=== PATIENT | female | born 1950 | race Caucasian/White ===

== ENCOUNTER → 2018-01-20 | Outpatient (CLI) | payer OTHER ==
[~2018-01-20] VITALS: Ht 160 cm; Wt 66.1 kg
[~2018-01-20] MED LIST: AZITHROMYCIN 2250 MG PO; CBD PO; INDERAL LA80 MG PO; MIACALCIN; NEURONTIN 300300 M1 PO; NORFLEX100 MG PO; PERCOCET 5-3251 EACH PO; PREVACID15 MG PO; TRAMADOL 50 MG50 MG PO; TRAZODONE HCL50 MG PO; TYLENOL EXTRA500 MG PO; VIRTUSSIN AC L118 ML PO; XARELTO20 MG PO
--- NOTE | ~2018-01-20 | HPC ---
[facility] [place] [address] PAIN MANAGEMENT CONSULTATION Name: ENMANUEL JERONIMO Room #: REG [facility] MJack.#: [id number] Admission: 01/20/18 Attend Phys: Al Schmidt DO Discharge: Date of : 54 Report #: [id number] THIS REPORT FOR: //name// CC: Jason Brown DATE OF SERVICE: 01/20/2018 REFERRING PHYSICIAN: Jason Saavedra D.O. CHIEF COMPLAINT: Low back pain and right lower extremity pain with paresthesias. HISTORY OF PRESENT ILLNESS: As you know, the patient is a very pleasant 67-year-old female referred to our service for evaluation for suspected lumbar radiculopathy. The patient has had extensive lumbar spine surgery, which provided pain improvement but unfortunately, her symptoms began to return. She was subsequently referred to our clinic. She has been diagnosed with lumbar radiculopathy secondary to the displacement of a lumbar intervertebral disk and severe neural foraminal stenosis of the lumbar spine. The combination, which has led to increasing pain. The patient was subsequently referred to our service to trial epidural injections. She has undergone 2 epidural injections, the first 11/25/2017 and the second 12/09/2017, both of which provided good benefit. The patient reports the previous epidural injection led to a near 100% improvement in overall pain until just recently where her symptoms began to return. She returns to undergo the third and final of epidural injections in the 6 months. ALLERGIES: IODINE and PROVIDINE. CURRENT MEDICATIONS: Trazodone, lansoprazole, acetaminophen, tramadol and propranolol. SOCIAL HISTORY: The patient denies tobacco, alcohol or IV or illicit drug use. 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 She is unaccompanied today. IMAGING DATA: No new imaging available. PHYSICAL EXAMINATION: VITAL SIGNS: Blood pressure 124/80, pulse is 65 and respiratory rate 16 and unlabored. The patient is 97% on room air. Height 5 feet 3 inches tall, weight 145.8 pounds and BMI calculated 25.8. GENERAL: Well-developed, well-nourished, well-hydrated 67-year-old female, appearing her stated age. She is placing current pain score at 3/10. HEENT: Normocephalic and atraumatic. Pupils equal, round and reactive to [facility] [address] [place] [address] PAIN MANAGEMENT CONSULTATION Name: ENMANUEL JERONIMO SABA Room #: REG CLNoel Becerra#: [id number] Admission: 01/20/18 Attend Phys: Al Schmidt DO Discharge: Date of : 54 Report #: [id number] light. Extraocular muscles are intact. Speech remains fluent. EXTREMITIES: Show no clubbing, no cyanosis and no edema. MUSCULOSKELETAL: Lower extremity strength is 5/5, intact to light touch from L1 through S2 dermatomes. Seated straight leg raising negative. Supine straight leg raising positive right. Vivi's test negative. Modified Gaenslen's positive for axial low back pain. PQRS: The patient has known osteoarthritis of the low back, bilateral hips, no rheumatoid arthritis. Pacing placing pain score 3/10. She is not a fall risk, has not had a fall in the last 3 months. She is not on blood thinners. She is treated for hypertension. She is not taking any opioid. She does have a opioid addiction potential. She is placing her pain impact score 40/70, mild to moderate. ASSESSMENT: 1. Symptomatic lumbar radiculopathy. 2. Displacement of lumbar intervertebral disk with radiculopathy. 3. 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 4. Facet arthropathy of the lumbar spine. 5. Lumbosacral spondylosis with radiculopathy. 6. Chronic intractable pain. PLAN: 1. The patient returns today in followup visit indicating excellent benefit with previous epidural injection. Unfortunately, her symptoms have begun to return. She returns to undergo next in the series of epidural injections. She has been advised the risks and benefits of the procedure and states understood and wished to proceed. 2. No medication changes made at today's visit. The patient will continue current medical therapy as previously prescribed. 3. We will see the patient back in followup visit on an as needed basis for the next in the series of epidural injections. We did advise the patient today the next injection would be 6 months from her 11/25/2017 initial epidural injection. PROCEDURE NOTE DESCRIPTION OF PROCEDURE: L5-S1 right paramedian epidural steroid injection under fluoroscopic guidance. After obtaining written consent, the patient was taken back to fluoroscopy suite, placed in prone position with pillow under abdomen to decrease lumbar lordosis. Skin overlying lumbosacral area then prepped and draped in aseptic fashion. The L5-S1 vertebral interspace identified by AP fluoroscopy. Skin and subcutaneous tissue overlying target site of injection then anesthetized with 3 mL of 1% lidocaine. [facility] [address] [place] [address] PAIN MANAGEMENT CONSULTATION Name: ENMANUEL JERONIMO Room #: REG [facility]#: [id number] Admission: 01/20/18 Attend Phys: Al Schmidt DO Discharge: Date of : 54 Report #: [id number] A 20-gauge 3-1/2 inch Tuohy needle advanced under fluoroscopic guidance towards the epidural space using a right paramedian approach. Epidural space identified using loss of resistance to air technique. After negative aspiration for heme or cerebrospinal fluid, 0.2 mL of Omnipaque were injected. A lumbar epidurogram was confirmed using both AP and lateral fluoroscopy. After negative aspiration for heme or cerebrospinal fluid, 5 mL of a solution containing 2 mL 40 mg per mL, 80 mg total triamcinolone, 3 mL lidocaine 1% injected slowly. Needle retracted shelter, flushed with 1 mL of 1% lidocaine and removed. Sterile bandage placed over injection site. No new motor deficits present in lower extremity following procedure. The patient tolerated procedure well, carefully escorted to Recovery Room in stable condition. No apparent complications. After meeting discharge criteria, the patient discharged home. <ELECTRONICALLY SIGNED> By: Al Schmidt DO 01/27/18 [id number] Al Schmidt DO /nt
[2018-01-20 12:50] VITALS: BP 124/80
== END | disposition home or self-care (01) ==
LOC: PAIN 06:53
DX: M51.16 Intervertebral disc disorders with radiculopathy, lumbar region (principal); M99.73 Connective tissue and disc stenosis of intervertebral foramina of lumbar region; M12.88 Other specific arthropathies, not elsewhere classified, other specified site; M47.27 Other spondylosis with radiculopathy, lumbosacral region; G89.29 Other chronic pain; I10 Essential (primary) hypertension; Z98.890 Other specified postprocedural states; Z88.8 Allergy status to other drugs, medicaments and biological substances; Z79.899 Other long term (current) drug therapy

== ENCOUNTER → 2018-08-24 | Outpatient (CLI) | payer OTHER ==
[~2018-08-24] VITALS: Ht 160 cm; Wt 71.6 kg
[~2018-08-24] MED LIST changes: +PROTONIX 20 MG20 M1 PO
--- NOTE | ~2018-08-24 | HPC ---
[facility] [place] [address] PAIN MANAGEMENT CONSULTATION Name: ENMANUEL JERONIMO Room #: REG CL M.R.#: [id number] Admission: 08/24/18 ������������������ Attend Phys: Al Schmidt DO Discharge: ������������������ Date of : 54 Report #: [id number] THIS REPORT FOR: //name// CC: Jason Saavedra DO Ivon Elie Al Schmidt DATE OF SERVICE: 08/24/2018 CHIEF COMPLAINT: Low back pain, right lower extremity pain and paresthesias. HISTORY OF PRESENT ILLNESS: As you know, the patient is a 68-year-old female who returns today in followup visit requesting next in the series of lumbar epidural injections under fluoroscopic guidance. She is reporting pain score of 3/10. She reports that she received improvement of pain of 90% with previous epidural injection lasting for nearly 7 months. She returns today in followup visit to undergo next in the series of epidural injections to address recurrent pain. She denies injury or trauma that may have led to symptom recurrence. ALLERGIES: IODINE and POVIDINE. CURRENT MEDICATIONS: Trazodone, lansoprazole, acetaminophen, tramadol, propranolol. SOCIAL HISTORY: The patient denies tobacco, alcohol, IV or illicit drug use. She is working, not receiving workmen's compensation, unaccompanied today. IMAGING: No new imaging available. PQRS: The patient has known osteoarthritic changes of the lumbar spine. No rheumatoid arthritis. Pain intensity 3/10. She is not a fall risk, but has had a fall in the last 3 months. Apparently, she has tumbled over some objects in her home. She is not on blood thinners, but is treated for hypertension. She is not on chronic opioids, but has a low opioid addiction potential. She is placing pain impact score 40/70, moderate interference of daily activities secondary to pain. PHYSICAL EXAMINATION: VITAL SIGNS: Blood pressure 130/74, pulse 60, respiratory rate 16 and unlabored. The patient is 98% on room air. Height 5 feet 3 inches tall, weight 157.8 pounds, BMI calculated 28. GENERAL: Well-developed, well-nourished, well-hydrated 68-year-old female, appearing stated age, pain is rated at around 3/10. HEENT: Normocephalic, atraumatic. Pupils are equal, round, reactive to light. Speech is fluent. The patient deemed a good historian. EXTREMITIES: Show no clubbing, no cyanosis, and no edema. [facility] [address] [place] [address] PAIN MANAGEMENT CONSULTATION Name: ENMANUEL JERONIMO SABA Room #: REG [facility].#: [id number] Admission: 08/24/18 ������������������ Attend Phys: Al Schmidt DO Discharge: ������������������ Date of : 54 Report #: [id number] MUSCULOSKELETAL: Lower extremity strength is symmetrical again today 5/5. Muscle bulk and tone equal and symmetrical in comparing left lower extremity over right. Seated straight leg raising negative. Supine straight leg raising positive right. Vivi's test negative. Modified Gaenslen's positive for axial low back pain. Ankle clonus negative. Babinski is negative. Gait mildly antalgic favoring right lower extremity over left. ASSESSMENT: 1. Symptomatic lumbar radiculopathy. 2. Displacement of lumbar intervertebral disk with radiculopathy. 3. Lumbosacral spondylosis with radiculopathy. 4. Facet arthropathy of the lumbar spine. 5. Severe neural foraminal stenosis of lumbar spine. 6. Chronic intractable pain. PLAN: 1. The patient returns today in followup visit reporting excellent benefit with the last epidural injection lasting for nearly 7 months. She returns today in followup visit requesting to undergo next in the series of epidural injections. She denies any new injury or trauma or any changes in medical history since our last visit. She has been consented to undergo the procedure, states she understood the risks and benefits and wished to proceed. 2. No medication changes made at today's visit. The patient will continue current medical therapy as previously prescribed. 3. We will see the patient back in followup visit on an as needed basis for next in a series of lumbar epidural injections. DESCRIPTION OF PROCEDURE: L5-S1 right paramedian epidural steroid injection under fluoroscopic guidance. After obtaining written consent, the patient was taken back to fluoroscopy suite, placed in prone position with pillow under abdomen to decrease lumbar lordosis. Skin overlying lumbosacral area then prepped and draped in aseptic fashion. Lumbar intervertebral spaces were identified by AP fluoroscopy. Skin and subcutaneous tissue overlying target site of injection anesthetized with 3 mL of 1% lidocaine. A 20-gauge 3-1/2 inch Tuohy needle advanced under fluoroscopic guidance towards the epidural space using right paramedian approach. Epidural space identified using loss of resistance to air technique. Due to a contrast allergy, no contrast agent was used in today's procedure. After negative aspiration for heme or cerebrospinal fluid, 5 mL of a solution containing 2 mL 40 mg per mL, 80 mg total triamcinolone and 3 mL of lidocaine 1% injected slowly. Needle then retracted approximately half way, flushed with 1 mL of 1% lidocaine and then removed. Sterile bandage placed over injection site. No new motor deficits present in lower extremities following procedure. [address] [address] PAIN MANAGEMENT CONSULTATION Name: ENMANUEL JERONIMO SABA Room #: REG [facility]..#: [id number] Admission: 08/24/18 ������������������ Attend Phys: Al Schmidt DO Discharge: ������������������ Date of : 54 Report #: [id number] The patient tolerated procedure well, carefully escorted to recovery room in stable condition. No apparent complications. After meeting discharge criteria, the patient discharged home. ��������������������������������������������� ���������������������������������������� By: ��������������������������������������������� [id number] Al Schmidt DO /nt
[2018-08-24 10:10] VITALS: BP 130/74
--- NOTE | 2018-08-24 10:26 | NUR ---
Pain Clinic Assessment: 1. History of Osteoarthritis: Not Applicable History of Rheumatoid Arthritis: Not Applicable 2. Height: 5 ft. 3 in. 160.0 cm. Weight: 157.8 lb. oz. 71.578 kg. Patient's BMI: 28.0 3. Vital Signs: BP: 130/74 Pulse: 60 Resp: 16 Temp: 02 Sat: 98 ECG Mon: 4. Pain Intensity: 3 5. Fall Risk: Dizziness: N Needs help standing or walking: N Fallen in the last 3 months: Y Fall risk comments: 6. Patient on Blood Thinner: None 7. History of Hypertension: Y 8. Opioid Therapy greater than 6 weeks: N Opiate Contract Signed: 9. Risk Assessment Tool Provided: LOW 10. Functional Assessment Tool: 11. Recreational Drug Use: Never Drug Type: Tobacco Use: Never Smoker Tobacco Type: Amount or Packs/day: How Many Years: Alcohol Use: No Frequency: Quant:
== END | disposition home or self-care (01) ==
LOC: PAIN 06:47
DX: M51.16 Intervertebral disc disorders with radiculopathy, lumbar region (principal); M47.27 Other spondylosis with radiculopathy, lumbosacral region; M48.02 Spinal stenosis, cervical region; M47.26 Other spondylosis with radiculopathy, lumbar region; G89.29 Other chronic pain; Z91.041 Radiographic dye allergy status; Z88.8 Allergy status to other drugs, medicaments and biological substances; Z79.899 Other long term (current) drug therapy; Z98.890 Other specified postprocedural states